=== PATIENT | male | born 1975 | race Caucasian/White ===

== ENCOUNTER → 2025-03-16 14:37 | Outpatient (REF) | payer OTHER, SELFPAY | LOC: HWRAD 14:37 | DX: M54.2 Cervicalgia (principal) | CPT/HCPCS: 72050 ==

== ENCOUNTER → 2025-09-14 17:28 | Outpatient (REF) | payer OTHER, SELFPAY | LOC: PAVMRI 17:28 | PROVIDERS: ATTENDING PHYSICIAN Physician Assistant Surgical | DX: M54.12 Radiculopathy, cervical region (principal) | CPT/HCPCS: 72141 ==